=== PATIENT | male | born 1950 | race Caucasian/White ===

== ENCOUNTER 2019-11-28 09:36 | Emergency (ER) | payer MEDICARE, BC ==
[~2019-11-28] VITALS: Ht 182 cm; Wt 100.0 kg
--- OUTSIDE RECORDS SUMMARY | 2019-11-28 09:41 | XMS REPORT | Continuity of Care Document ---
Author Organization Unknown Address Unknown Phone Unavailable Allergies There is no data. Medications There is no data. Problems There is no data. Procedures There is no data. Results There is no data. Encounters ACCT No. Visit Date/Time Discharge Status Pt. Type Provider Facility Loc./Unit Complaint [id number] 11/28/2019 09:38:[address] Emergency JAVIER CASTORENA, CARLOS Mora [facility] ER DIZZY
--- NOTE | 2019-11-28 10:04 | ED Syncope ---
General Chief Complaint: Dizziness/Syncope Stated Complaint: DIZZY Nursing Triage Note: Patient states he began experiencing dizziness this morning that has become progressively worse. He advises bilateral arm numbness intermittently. He states he fell this morning secondary to the dizziness but denies injury at that time. Source of Information: Patient Exam Limitations: No Limitations (CONNOR HERNANDEZ,) History of Present Illness Date Seen by Provider: Nov 28, 2019 Time Seen by Provider: 09:40 Initial Comments Mr. Marmolejo is here at the ER regarding lightheadedness that started this morning. He had the hiccups, stood up to get a drink of water, and fell over when he stood. He denies hitting his head or any other injury. He does have a "weird feeling" in his arms and numbness/tingling in his hands bilaterally. He denies any chest pain, shortness of breath, difficulties walking, or blurry vision. He does admit to current weakness still with remaining weirdness in his arms. After the event, he remained seated for a while and rested. Following, he went with his son to get donuts but on his return was not much better, so he proceeded to the ER at that time. He denies any current lightheadedness. He does have a prior history of this numbness and feeling in his arms. On further questioning, he states his told him he "shook a little bit" when falling down, but due to visitor restrictions, this was not explained further. He also admits to having a few drinks with his son last night. Timing/Prior Episodes: Other (prior similar events of numbness and weird feeling) Symptoms Prior to Episode: None Precipitating Factors: Standing Loss of Consciousness: No Loss of Consciousness Current Symptoms: No Blurred Vision, No Chest Pain, No Diaphoresis, No Lightheadedness; Weakness (CONNOR HERNANDEZ,) Allergies and Home Medications Allergies Coded Allergies: No Known Drug Allergies (Unverified , 11/28/19) Patient Home Medication List Home Medication List Reviewed: Yes (CONNOR HERNANDEZ,) Review of Systems Constitutional: weakness EENTM: see HPI Respiratory: no symptoms reported Cardiovascular: no symptoms reported Gastrointestinal: no symptoms reported (CONNOR HERNANDEZ,) Past Imhyquq-Hfxozs-Xcrnzg Hx Patient Social History Alcohol Use: Occasionally Uses (1-2 drinks every 2-3 days) Recreational Drug Use: No Smoking Status: Never a Smoker Recent Foreign Travel: No Contact w/Someone Who Travel: No Recent Infectious Disease Expo: No Recent Hopitalizations: No (CONNOR HERNANDEZ,) Past Medical History Adenoidectomy, Orthopedic (right meniscus, hx of left knee surgery), Tonsillectomy Respiratory: No Cardiac: Yes High Cholesterol Neurological: No Genitourinary: No Gastrointestinal: Yes Hepatitis (hx of Hep A at 29) Musculoskeletal: No Endocrine: No HEENT: No Cancer: No Psychosocial: No Integumentary: No Blood Disorders: No (CONNOR HERNANDEZ,) Family Medical History Cancer (CONNOR HERNANDEZ,) Physical Exam Vital Signs Vital Signs - First Documented 11/28/19 11/28/19 11/28/19 09:51 11:23 12:59 Pulse 67 66 80 Resp 16 B/P (MAP) 148/82 (104) Pulse Ox 99 O2 Delivery Room Air (CARLOS HERRERA MD) Vital Signs Capillary Refill : Less Than 3 Seconds (CONNOR HERNANDEZ,) Height, Weight, BMI Height: '" Weight: lbs. oz. kg; 30.00 BMI Method: Neurologic/Psychiatric: Alert, Oriented x3, No Motor/Sensory Deficits, Normal Mood/Affect, shop manager II-XII Norm as Tested, Other (normal cerebellar exam) (CONNOR KEN,) Progress/Results/Core Measures Results/Orders Lab Results Laboratory Tests Test 11/28/19 09:48 11/28/19 10:20 11/28/19 10:23 Range/Units White Blood Count 5.8 4.3-11.0 10^3/uL Red Blood Count 4.80 4.35-5.85 10^6/uL Hemoglobin 15.4 13.3-17.7 G/DL Hematocrit 45 40-54 % Mean Corpuscular Volume 94 80-99 FL Mean Corpuscular Hemoglobin 32 25-34 PG Mean Corpuscular Hemoglobin Concent 34 32-36 G/DL Red Cell Distribution Width 12.9 10.0-14.5 % Platelet Count 135 130-400 10^3/uL Mean Platelet Volume 11.2 H 7.4-10.4 FL Neutrophils (%) (Auto) 63 42-75 % Lymphocytes (%) (Auto) 26 12-44 % Monocytes (%) (Auto) 9 0-12 % Eosinophils (%) (Auto) 2 0-10 % Basophils (%) (Auto) 0 0-10 % Neutrophils # (Auto) 3.6 1.8-7.8 X 10^3 Lymphocytes # (Auto) 1.5 1.0-4.0 X 10^3 Monocytes # (Auto) 0.5 0.0-1.0 X 10^3 Eosinophils # (Auto) 0.1 0.0-0.3 10^3/uL Basophils # (Auto) 0.0 0.0-0.1 10^3/uL Sodium Level 139 135-145 MMOL/L Potassium Level 4.0 3.6-5.0 MMOL/L Chloride Level 108 H 98-107 MMOL/L Carbon Dioxide Level 21 21-32 MMOL/L Anion Gap 10 5-14 MMOL/L Blood Urea Nitrogen 13 7-18 MG/DL Creatinine 0.91 0.60-1.30 MG/DL Estimat Glomerular Filtration Rate > 60 BUN/Creatinine Ratio 14 Glucose Level 186 H 70-105 MG/DL Calcium Level 9.8 8.5-10.1 MG/DL Corrected Calcium 9.7 8.5-10.1 MG/DL Magnesium Level 1.9 1.6-2.4 MG/DL Total Bilirubin 0.8 0.1-1.0 MG/DL Aspartate Amino Transf (AST/SGOT) 21 5-34 U/L Alanine Aminotransferase (ALT/SGPT) 28 0-55 U/L Alkaline Phosphatase 61 40-136 U/L Troponin I < 0.028 <0.028 NG/ML Total Protein 6.5 6.4-8.2 GM/DL Albumin 4.1 3.2-4.5 GM/DL Serum Alcohol < 10 <10 MG/DL Urine Color YELLOW Urine Clarity CLEAR Urine pH 5.5 5-9 Urine Specific [place] 1.010 L 1.016-1.022 Urine Protein NEGATIVE NEGATIVE Urine Glucose (UA) NEGATIVE NEGATIVE Urine Ketones NEGATIVE NEGATIVE Urine Nitrite NEGATIVE NEGATIVE Urine Bilirubin NEGATIVE NEGATIVE Urine Urobilinogen 0.2 < = 1.0 MG/DL Urine Leukocyte Esterase NEGATIVE NEGATIVE Urine RBC (Auto) NEGATIVE NEGATIVE Urine RBC NONE /HPF Urine WBC NONE /HPF Urine Crystals NONE /LPF Urine Bacteria NEGATIVE /HPF Urine Casts NONE /LPF Urine Mucus NEGATIVE /LPF Urine Culture Indicated NO (CARLOS HERRERA MD) My Orders Orders - CARLOS HERRERA MD Cbc With Automated Diff (11/28/19 09:58) Magnesium (11/28/19 09:58) Chest 1 View, Ap/Pa Only (11/28/19 09:58) Ekg Tracing (11/28/19 09:58) Comprehensive Metabolic Panel (11/28/19 09:58) O2 (11/28/19 09:58) Monitor-Rhythm Ecg Trace Only (11/28/19 09:58) Ed Iv/Invasive Line Start (11/28/19 09:58) Troponin I (11/28/19 09:58) Alcohol (11/28/19 09:58) Ua Culture If Indicated (11/28/19 09:58) Ns Iv 1000 Ml (Sodium Chloride 0.9%) (11/28/19 11:39) (CARLOS HERRERA MD) Vital Signs/I&O 11/28/19 11/28/19 11/28/19 11/28/19 09:51 09:51 11:23 12:59 Pulse 67 97 66 80 Resp 16 B/P (MAP) 148/82 (104) 134/79 (97) 142/84 133/78 (96) 116/70 (85) Pulse Ox 99 98 98 O2 Delivery Room Air Room Air Room Air (CARLOS HERRERA MD) Blood Pressure Mean: 104 Initial ECG Impression Date: Nov 28, 2019 Initial ECG Impression Time: 09:49 Initial ECG Rate: 81 Comment Sinus rhythm with no ST elevation or depression. No abnormal intervals or axis deviation. Frequent PVC's. (CARLOS HERRERA MD) Diagnostic Imaging Diagonstic Imaging: Xray Plain Films/CT/US/NM/MRI: chest Comments NAME: GRACIELA MARMOLEJO MED REC#: [id number] PT STATUS: REG ER : 1950 PHYSICIAN: CARLOS HERRERA MD ADMIT DATE: 11/28/19/ER Signed Date of Exam:11/28/19 CHEST 1 VIEW, AP/PA ONLY INDICATION: Arm pain and numbness. Fall. COMPARISON: None. FINDINGS: Frontal view of the chest demonstrates clear lungs bilaterally. The heart size is normal. There is no pneumothorax. Osseous structures are normal. IMPRESSION: No acute findings. Normal chest. Dictated by: Dictated on workstation # [id number] Dict: 11/28/19 1015 Trans: 11/28/19 1124 CV [id number] Interpreted by: ANNE GOMEZ Electronically signed by: ANNE GOMEZ 11/28/19 1124 (CARLOS HERRERA MD) Departure Impression Primary Impression: Near syncope Additional Impression: PVC (premature ventricular contraction) Disposition: 01 HOME, SELF-CARE Condition: Improved Departure-Patient Inst. Referrals: NO,LOCAL PHYSICIAN (PCP/Family) Primary Care Physician Patient Instructions: Syncope (Fainting) (DC) Add. Discharge Instructions: Please follow-up with your primary care provider as soon as possible. The exact cause of your symptoms is uncertain but may have been related to hydration status. Discussed other possible causes with your primary care provider including heart rhythm issues, narrowing of your carotid arteries, etc. Further workup may be pursued on an outpatient basis. Stay well-hydrated and avoid excessive alcohol consumption. Return to care in the ER if you have worsening symptoms which might include vomiting, persistent lightheadedness, chest pain, shortness of breath, etc. All discharge instructions reviewed with patient and/or family. Voiced understanding. CONNOR HERNANDEZ, Nov 28, 2019 10:03 CARLOS HERRERA MD Nov 28, 2019 12:41
[2019-11-28 10:06] LABS: BASOPHILS % (AUTO) 0 % (0-10); EOSINOPHILS # (AUTO) 0.1 10^3/uL (0.0-0.3); EOSINOPHILS % (AUTO) 2 % (0-10); HEMATOCRIT 45 % (40-54); HEMOGLOBIN 15.4 G/DL (13.3-17.7); LYMPHOCYTES # (AUTO) 1.5 X 10^3 (1.0-4.0); LYMPHOCYTES % (AUTO) 26 % (12-44); MEAN CORPUSCULAR HEMOGLOBIN 32 PG (25-34); MEAN CORPUSCULAR HGB CONC 34 G/DL (32-36); MEAN CORPUSCULAR VOLUME 94 FL (80-99); MEAN PLATELET VOLUME 11.2 FL (7.4-10.4); MONOCYTES # (AUTO) 0.5 X 10^3 (0.0-1.0); MONOCYTES % (AUTO) 9 % (0-12); NEUTROPHILS # (AUTO) 3.6 X 10^3 (1.8-7.8); NEUTROPHILS % (AUTO) 63 % (42-75); PLATELET COUNT 135 10^3/uL (130-400); RED CELL DISTRIBUTION WIDTH 12.9 % (10.0-14.5); WHITE BLOOD COUNT 5.8 10^3/uL (4.3-11.0)
--- NOTE | 2019-11-28 10:21 | Diagnostic Imaging Report ---
INDICATION: Arm pain and numbness. Fall. COMPARISON: None. FINDINGS: Frontal view of the chest demonstrates clear lungs bilaterally. The heart size is normal. There is no pneumothorax. Osseous structures are normal. IMPRESSION: No acute findings. Normal chest. Dictated by: Dictated on workstation # [id number]
[2019-11-28 10:33] LABS: BILIRUBIN,URINE NEGATIVE (NEGATIVE); CLARITY,URINE CLEAR; COLOR,URINE YELLOW; GLUCOSE, URINE (UA) NEGATIVE (NEGATIVE); KETONES,URINE NEGATIVE (NEGATIVE); LEUKOCYTE ESTERASE ,URINE NEGATIVE (NEGATIVE); NITRITE,URINE NEGATIVE (NEGATIVE); PH,URINE 5.5 (5-9); PROTEIN,URINE NEGATIVE (NEGATIVE)
[2019-11-28 10:44] LABS: BACTERIA,URINE NEGATIVE /HPF
[2019-11-28 10:52] LABS: ALBUMIN 4.1 GM/DL (3.2-4.5); CHLORIDE 108 MMOL/L (98-107); SODIUM 139 MMOL/L (135-145)
[2019-11-28 10:53] LABS: CALCIUM 9.8 MG/DL (8.5-10.1)
[2019-11-28 10:54] LABS: GLUCOSE 186 MG/DL (70-105)
[2019-11-28 10:55] LABS: TOTAL PROTEIN 6.5 GM/DL (6.4-8.2)
[2019-11-28 10:56] LABS: BILIRUBIN,TOTAL 0.8 MG/DL (0.1-1.0); CARBON DIOXIDE 21 MMOL/L (21-32)
[2019-11-28 10:58] LABS: ALKALINE PHOSPHATASE 61 U/L (40-136); CREATININE SERUM 0.91 MG/DL (0.60-1.30); GFR ESTIMATED > 60
[2019-11-28 10:59] LABS: BUN/CREATININE RATIO 14
[2019-11-28 11:01] LABS: ALANINE AMINOTRANSFERASE 28 U/L (0-55); MAGNESIUM 1.9 MG/DL (1.6-2.4)
--- NOTE | 2019-11-28 11:22 | NUR ---
Patient states he became dizzy upon going to the restroom. Orthostatic vitals documented.
[2019-11-28 11:23] VITALS: BP_SYST 116; BP_SYST 133; BP_SYST 134; BP_DIAS 70; BP_DIAS 78; BP_DIAS 79
[2019-11-28] MEDS ORDERED: NS IV 1000 ML 1,000 ML IV SCH (11:39)
[2019-11-28 12:59] VITALS: BP 142/84
== END 2019-11-28 13:00 | disposition home or self-care (01) ==
LOC: ER 09:38
DX: R55 Syncope and collapse (principal); I49.3 Ventricular premature depolarization
CPT/HCPCS: 71045; 80053; 81000; 83735; 84484; 85025; 93005; 93041; 99284; G0480; 36415; 80320